=== PATIENT | male | born 1960 | race Caucasian/White ===

== ENCOUNTER 2019-06-17 00:13 | Day surgery (SDC) | payer BC, SELFPAY ==
[2019-06-15 09:49] VITALS: BMI 28.1
[2019-06-17] MEDS: LACTATED RINGERS 1,000 ML 150 ML IV CONT (06:20)
[2019-06-17 06:34] VITALS: BP 132/94; PULSE 80; RESP 16; TEMP 36.4; O2SAT 96
--- NOTE | 2019-06-17 07:13 | WPDANESEPPF ---
Anes - Initial Pre Proc Eval Procedure: Operation Date: 06/17/19 07:30 Proposed Procedures p Screening Colonoscopy - Americo Hinojosa MD Date/Time: 06/17/19 07:13 Surgeon: Americo Hinojosa MD Pre Op Diagnosis: Neoplasm Screening/ Fam Hx Colon Ca Patient Data Age: 59 Gender: M Height: 5 ft 8 in Weight: 84 kg Last Vital Signs Temp 97.6 F 06/17/19 06:34 Pulse 80 06/17/19 06:34 Resp 16 06/17/19 06:34 BP 132/94 H 06/17/19 06:34 Pulse Ox 96 06/17/19 06:34 Allergies Allergy/AdvReac Type Severity Reaction Status Date / Time No Known Allergies Allergy Verified 06/17/19 06:17 Home Medications Medication Instructions Recorded Confirmed Type aspirin 81 mg tablet,delayed 81 mg PO DAILY 05/21/19 06/17/19 History release Patient hx anesthesia problems: none Family hx anesthesia problems: none PMFSH Past Medical History Medical History Atrial septal defect BPPV (benign paroxysmal positional vertigo) (~2017) Surgical History Surgical History (Updated 05/21/19 @ 09:51 by Nury Billingsley NP) History of appendectomy (~2002) Family History Family History (Updated 07/07/18 @ 14:54 by DOCTOR UNKNOWN) Father Carcinoma of colon Family history of alcoholism Family history of primary malignant neoplasm of liver Mother Family history of malignant neoplasm of brain Sibling Family history of multiple sclerosis Patient's brother is in good health Family history of lymphoma, Onset Age: 70 Grandparent Family history of alcoholism Social History Social History (Updated 05/21/19 @ 09:53 by Nury Billingsley NP) Smoking status: Former smoker Tobacco type: cigarettes Second hand tobacco smoke exposure: No Smoking end date: 05/05/79 Additional smoking assessment comments: 2.5 pack-year Alcohol intake: current Anes - Eval Final PreProcedure Day of Procedure 06/17/19 07:13 Patient weight: normal Heart: regular rate and rhythm Lungs: clear to auscultation Airway: Mallampati scale class II Neurological: alert and oriented Last oral intake: >/= 8 hours ASA classification: II Emergent: no Anesthetic plan: proceed Anesthesia type and monitoring: general GIVS and standard monitoring Informed Consent: The patient's anesthetic plan and its attendant risks and benefits were discussed with the patient/family/POA. Questions were solicited and answers provided to the satisfaction of the patient/family/POA.
--- NOTE | 2019-06-17 07:36 | WPDGICN ---
Assessment and Plan Additional Plan This is a 59-year-old white male patient seen in evaluation at the request of Dr. David Romero. Patient presents for screening colonoscopy. Patient's current weight appetite bowel movements are normal. He denies any blood in his stools. He denies abdominal pain. His bowel habits are regular. Family history is significant is father had colon cancer. His brother had colon polyps. Current medications include only baby aspirin taken daily. No known drug allergies. Physical exam reveals him to be alert. Oriented x3. Vital signs stable. HEENT exam unremarkable. Lungs are clear to auscultation and percussion. Heart is without murmur or extra sounds. Abdominal exam bowel sounds are present soft nontender with no organomegaly. Digital external rectal exam is normal. Impression 1. Family history of colon cancer and polyps. Plan is for screening colonoscopy now on a 5 year intervals in the future. GI Consult Note Consult date/time: 06/17/19 07:36 HPI: Eitan Simpson is a 59 year old male [facility] Past Medical History Medical History (Updated 06/17/19 @ 07:15 by Royer Anne MD) Atrial septal defect small hole; no sypmtoms; advised to take baby ASA BPPV (benign paroxysmal positional vertigo) (~2017) Surgical History Surgical History (Updated 05/21/19 @ 09:51 by Nury Billingsley NP) History of appendectomy (~2002) Family History Family History (Updated 07/07/18 @ 14:54 by DOCTOR UNKNOWN) Father Carcinoma of colon Family history of alcoholism Family history of primary malignant neoplasm of liver Mother Family history of malignant neoplasm of brain Sibling Family history of multiple sclerosis Patient's brother is in good health Family history of lymphoma, Onset Age: 70 Grandparent Family history of alcoholism Social History Social History (Updated 05/21/19 @ 09:53 by Nury Billingsley NP) Smoking status: Former smoker Tobacco type: cigarettes Second hand tobacco smoke exposure: No Smoking end date: 05/05/79 Additional smoking assessment comments: 2.5 pack-year Alcohol intake: current Meds Home Medications and Allergies Home Medications Medication Instructions Recorded Confirmed Type aspirin 81 mg tablet,delayed 81 mg PO DAILY 05/21/19 06/17/19 History release Allergies Allergy/AdvReac Type Severity Reaction Status Date / Time No Known Allergies Allergy Verified 06/17/19 06:17 Vital Signs Vital Signs - 24 hr 06/17/19 06:34 Temperature 36.4 C Pulse Rate 80 Respiratory Rate 16 Blood Pressure 132/94 H Pulse Oximetry 96
[2019-06-17 08:00] VITALS: BP 106/72; PULSE 63; RESP 16; O2SAT 94
[2019-06-17 08:10] VITALS: BP 117/72; PULSE 55; RESP 16; O2SAT 97
[2019-06-17 08:20] VITALS: BP 121/80; PULSE 56; RESP 18; O2SAT 97
== END 2019-06-17 08:49 | disposition home or self-care (01) ==
PROVIDERS: PCP Family Medicine; Visit Provider Internal Medicine Gastroenterology
PROC: 0DJD8ZZ Inspection of Lower Intestinal Tract, Via Natural or Artificial Opening Endoscopic (ICD-10-PCS; CPT 45378; principal; 2019-06-17 07:30)
DX: Z12.11 Encounter for screening for malignant neoplasm of colon (principal); K63.5 Polyp of colon; K64.8 Other hemorrhoids; K57.30 Diverticulosis of large intestine without perforation or abscess without bleeding; Z80.0 Family history of malignant neoplasm of digestive organs; Z83.71 Family history of colonic polyps; Q21.1 Atrial septal defect; Z87.891 Personal history of nicotine dependence; Z79.82 Long term (current) use of aspirin
CPT/HCPCS: 45385; 88305; J2704; J7120

== ENCOUNTER 2019-10-28 12:21 | Emergency (ER) | payer BC, SELFPAY ==
--- NOTE | ~2019-10-28 | XR_ITS ---
EXAMINATION: XR forearm RT 2V DATE: 10/28/2019 13:05 INDICATION: Wood foreign body at the right forearm TECHNIQUE: AP an lateral views of the right forearm were obtained. COMPARISON: none FINDINGS: Bone alignment is normal. No fracture. Mild osteoarthritis at the first carpal metacarpal joint. Victoria nt lesion with thin sclerotic margins likely representing a cyst at the hamate. No evident radiopaque or radiolucent foreign bodies. IMPRESSION: 1. No acute osseous abnormality or evident foreign body. Of note organic foreign bodies can demonstra te similar density to soft tissue and can be occult on plain radiographs. If there is continued clini tatiana concern would consider ultrasound for more sensitive evaluation. Reviewed, dictated and finalized at location A. IMPRESSION: 1. No acute osseous abnormality or evident foreign body. Of note organic foreig n bodies can demonstrate similar density to soft tissue and can be occult on pl ain radiographs. If there is continued clinical concern would consider ultrasou nd for more sensitive evaluation.
--- NOTE | 2019-10-28 12:37 | ED.GENADULT ---
HPI - General Adult General Chief complaint: Wound/Laceration Stated complaint: foreign body right forearm Time Seen by Provider: 10/28/19 12:36 Source: patient Mode of arrival: ambulatory Limitations: no limitations History of Present Illness HPI narrative: 59-year-old male patient presents to the [facility] with complaints of a foreign body into his right forearm. Patient states he was working outside today and tripped and fell up against a wooden door frame and got a splinter stuck in his right forearm. Patient states he attempted to get out but was unable to get out and states that it is quite large. Unknown when his last tetanus shot was. Denies being on any blood thinners. Related Data Home Medications Medication Instructions Recorded Confirmed aspirin 81 mg tablet,delayed 81 mg PO DAILY 05/21/19 06/17/19 release Allergies Allergy/AdvReac Type Severity Reaction Status Date / Time No Known Allergies Allergy Verified 10/28/19 12:43 Review of Systems Review of Systems: Narrative: CONSTITUTIONAL: Denies fever, chills, or sweats. EYES: Denies visual changes, redness, or discharge. ENT: Denies rhinorrhea, congestion, sore throat, or otalgia. CARDIOVASCULAR: Denies chest pain, palpitations, or edema. RESPIRATORY: Denies cough or dyspnea. GASTROINTESTINAL: Denies abdominal pain, nausea, vomiting, or diarrhea. GENITOURINARY: Denies dysuria or hematuria. SKIN: Denies rash or itching. Positive foreign body to right forearm MUSCULOSKELETAL: Denies back pain, joint pain, or myalgia. NEUROLOGIC: Denies headache, numbness, or weakness. PSYCHIATRIC: Denies anxiety or depression. [facility] Past Medical History Medical History Atrial septal defect small hole; no sypmtoms; advised to take baby ASA BPPV (benign paroxysmal positional vertigo) (~2018) Surgical History Surgical History History of appendectomy (~2002) Family History Family History Father Carcinoma of colon Family history of alcoholism Family history of primary malignant neoplasm of liver Mother Family history of malignant neoplasm of brain Sibling Family history of multiple sclerosis Patient's brother is in good health Family history of lymphoma, Onset Age: 70 Grandparent Family history of alcoholism Social History Social History Smoking status: Former smoker Tobacco type: cigarettes Second hand tobacco smoke exposure: No Smoking end date: 05/05/79 Additional smoking assessment comments: 2.5 pack-year Alcohol intake: current Comments At the time of my signature I agree with nursing past medical history, surgical, social, and family history. There is no relevant family history pertinent to the presenting complaint. Exam Narrative: Exam Narrative: GENERAL: Well-appearing, well-nourished, and in no acute distress. HEAD: Normocephalic, atraumatic. EYES: PERRLA and EOMI. ENT: Nares clear, no rhinorrhea or epistaxis. Mucous membranes moist. NECK: Supple. No lymphadenopathy CHEST: Clear to auscultation. No respiratory distress. HEART: Regular rate and rhythm. No murmur heard. Normal peripheral pulses. ABDOMEN: Soft, nontender, nondistended, normal active bowel sounds. EXTREMITIES: Normal range of motion. No edema. SKIN: Warm, dry, no rash. Patient has about a 4 cm splinter noted under the skin right forearm. No active bleeding at this time. Patient does have excellent range of motion to the arm and hand. Good pulses noted on palpation. NEURO: No focal deficits. Alert and oriented x3. Course Vital Signs Vital signs: Vital signs reviewed. Procedures Foreign Body Removal Foreign Body #1: Foreign Body Removal Date: 10/28/19 Foreign Body Removal Time: 14:05 Time Out Performed: no Site: ri
[2019-10-28] MEDS: TETANUS,DIPHTHERIA,AC PERTUSSIS ADULT (0.5 ML) BOOSTRIX IM (13:23)
[2019-10-28] MEDS: LIDOCAINE HCL 1% LOCAL INJ 20 ML VIAL (13:24)
[2019-10-28 14:38] VITALS: BP 120/70; PULSE 77; RESP 20; TEMP 36.7; O2SAT 99
== END 2019-10-28 14:39 | disposition home or self-care (01) ==
PROVIDERS: Emergency Provider Nurse Practitioner Family; PCP Family Medicine
DX: S50.851A Superficial foreign body of right forearm, initial encounter (principal); Z79.82 Long term (current) use of aspirin; Z23 Encounter for immunization; Z87.891 Personal history of nicotine dependence; W45.8XXA Other foreign body or object entering through skin, initial encounter
CPT/HCPCS: 10120; 73090; 90471; 90715; 99283

== ENCOUNTER → 2020-05-22 11:03 | Outpatient (CLI) | payer BC, SELFPAY ==
--- NOTE | ~2020-05-22 | XR_ITS ---
EXAMINATION: XR wrist LT min 3V DATE: 05/22/2020 11:15 INDICATION: Chronic left wrist pain and swelling. TECHNIQUE: 4 views of left wrist were obtained. COMPARISON: Left wrist radiograph 03/19/2011 FINDINGS: Scapholunate dissociation is noted. There is dorsal tilt of lunate, consistent with dorsal intercalated segmental instability (DISI). There is severe osteoarthritis of radioscaphoid joint and lunate-capitate joint. There is a subchondral cyst in distal radius at the lunate fossa. There is mil d osteoarthritis of first carpometacarpal joint. There is dorsal wrist soft tissue swelling. There is a small loose body in the wrist dorsally. IMPRESSION: 1. Scapholunate advanced collapse (SLAC). Reviewed, dictated and finalized at location B. SERVICE SPECIALIST
== END ==
PROVIDERS: PCP Family Medicine; Visit Provider Plastic Surgery
DX: M19.031 Primary osteoarthritis, right wrist (principal)
CPT/HCPCS: 73110

== ENCOUNTER 2020-05-25 16:58 | Emergency (ER) | payer BC, SELFPAY ==
[2020-05-25 18:48] VITALS: BP 156/97; PULSE 70; RESP 18; TEMP 36.2; O2SAT 98
--- NOTE | 2020-05-25 18:55 | PC.NURSE ---
PT STATES NOW IS FEELING ALL BETTER AND WISHES TO LEAVE PRIOR TO SEEING A PROVIDER. PT AMBULATORY WITH A STEADY GAIT FROM ED. ADVISED HE CAN RETURN AT ANY TIME TO BE SEEN IF NEEDED.
== END 2020-05-25 18:30 | disposition left against medical advice (07) ==
PROVIDERS: PCP Family Medicine
DX: Z53.21 Procedure and treatment not carried out due to patient leaving prior to being seen by health care provider (principal)
CPT/HCPCS: 99199

== ENCOUNTER 2020-06-06 12:42 | Outpatient (CLI) | payer BC, SELFPAY ==
--- NOTE | ~2020-06-06 | XR_ITS ---
EXAMINATION: XR md joint inject/asp w image DATE: 06/06/2020 13:32 INDICATION: Left wrist osteoarthritis. TECHNIQUE: A time-out was performed to verify the patient's name, date of , and procedure to b e performed. The procedure including the risks, benefits, and alternatives was discussed with the pat ient. Risks discussed included bleeding and infection. The patient understood the risks and agreed to proceed. The skin overlying the left radiocarpal joint was prepped and draped in usual sterile fash ion. Anesthetic was administered with 1% lidocaine subcutaneously. A 23 G needle was advanced under fluoroscopic guidance into the joint. Subsequently, injectate consisting of 1.0 mL 40 mg/mL Kenalog, 0.5 mL 0.5% bupivacaine and 0.2 mL Omnipaque 240 was instilled. The needle was removed and the entr y site was cleaned and dressed. There were no immediate complications. Fluoroscopy exposure time was 0.0 minutes. The total number of images was 3. FINDINGS: Real-time fluoroscopy demonstrates the needle in the left radiocarpal joint. Contrast passe s to the midcarpal compartment, consistent with scapholunate ligament tear. Patient's pain prior to p rocedure:2/10. Patient's pain following the procedure: 0/10. IMPRESSION: 1. Fluoroscopy guided left radiocarpal joint injection of local anesthetic and steroid with decrease in the patient's presenting pain. Reviewed, dictated and finalized at location A. T [employer]TENA[employer]CE
== END 2020-06-06 12:43 | disposition home or self-care (01) ==
PROVIDERS: PCP Family Medicine; Visit Provider Plastic Surgery
DX: M19.032 Primary osteoarthritis, left wrist (principal)
CPT/HCPCS: 20605; 77002; J3301; Q9966

== ENCOUNTER 2020-06-26 15:00 | Outpatient (RCR) | payer BC, SELFPAY ==
--- NOTE | 2020-06-05 09:16 | PTOPEVAL ---
Thank you for referring Eitan Simpson to [facility].? The patient is scheduled to be seen for therapy? 2 x/week for 3 weeks to address his shoulder impairments. Please review, sign, date and return this plan of care SHERRY. I agree with and certify that the following plan of care is medically necessary. 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 He changes positions every 30 min. Subjective Information He reports increased pain with Query Text:As Reported By Patient/ reaching activities. Family Increased pain and limitations with reaching behind. He c/o constant ache pain in the shoulder. Denies any injury. Increased pain if sleeping on left shoulder. He c/o numbness and tinging into brent hands at home. Noted to be in 1st 3 fingers. He sleeps in all positions, but often on his back. He did receive an injection of his shoulder. Diagnostic Tests X-Rays For This Problem Yes: mild degenerative changes in the AC joint Pain Assessment Timing of Pain Assessment Pain Scale Used Numeric (1 - 10) Self Report Pain Assessment Left Shoulder(s) Reported Pain Level 2 Pain Description Aching,Numbness,Radiating, Tender on Palpation,Tingling Pain Frequency Chronic,Continuous Lowest Pain Intensity 2 Greatest Pain Intensity 7 Pain Aggravating Factors Exercise/Activity,Lifting Pain Behaviors None Pain Score Pain Score 2: Self Report Upper Extremity Range of Motion Scapular/ Shoulder Range of Motion Right Shoulder Flexion - Active 160 Shoulder Extension - Active 38 Shoulder Abduction - Active 160 Shoulder Medial Rotation - Active 75 Shoulder Medial Rotation - Active T9 Query Text:Reach Behind the Back Shoulder Lateral Rotation - Active 85 Shoulder Lateral Rotation - Active C6 Query Text:Reach Behind the Head Left Shoulder Flexion - Active 170 Shoulder Extension - Active 43 Shoulder Abduction - Active
--- NOTE | 2020-06-19 09:26 | PCPTNOTE ---
Patient called & cancelled scheduled appointment this date due to weather.
--- NOTE | 2020-06-26 15:45 | PTOPEVAL ---
Thank you for referring Eitan Simpson to [facility].? Pt has received 6 therapy visit to address shoulder impairments. He is able to perform normal daily activities without increased pain or symptoms. He is indep with his HEP at this time. He has achieved his therapy goals. He has reached maximal potential with skilled therapy services at this time. DC skilled therapy services with pt to cont with home prorgram. Please review, sign, date and return discharge summary SHERRY. I agree with and certify that the following plan of care is medically necessary. 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 Subjective Information He denies pain with sleeping Query Text:As Reported By Patient/ or daily activities. Denies Family any problems with reaching motions in all directions. He denied numbness and tinging into brent hands at home. He is performing his HEP 4x/wk. Pain Assessment Self Report Pain Score 0: Self Report Upper Extremity Range of Motion Right Shoulder Flexion - Active 168 Shoulder Extension - Active 42 Shoulder Abduction - Active 165 Shoulder Medial Rotation - Active 80 Shoulder Medial Rotation - Active T9 Query Text:Reach Behind the Back Shoulder Lateral Rotation - Active 75 Shoulder Lateral Rotation - Active T1 Query Text:Reach Behind the Head Left Shoulder Flexion - Active 175 Shoulder Extension - Active 48 Shoulder Abduction - Active 170 Shoulder Medial Rotation - Active 80 Shoulder Medial Rotation - Active T7 Query Text:Reach Behind the Back Shoulder Lateral Rotation - Active 68 Shoulder Lateral Rotation - Active T1 Query Text:Reach Behind the Head Upper Extremity Muscle Strength Testing Right Scapular Retraction - Middle Trapezius 3+ Fair + Scapular Retraction - Lower Trapezius 3 Fair Shoulder Flexion Strength 4+ Good + Shoulder Extension Strength 5 Normal Shoulder Abduction Strength 5 Normal Shoulder Medial Rotation Strength 5 Normal Shoulder Lateral Rotation Strength 5 Normal Left Scapular Retraction - Middle Trapezius 3 Fair Scapular Retraction - Lower Trapezius 3 Fair Shoulder Flexion Strength 4+ Good + Shoulder Extension Strength 5 Normal Shoulder Abduction Strength 4+ Good + Shoulder Medial Rotation Strength 5 Normal Shoulder Lateral Rotation Strength 5 Normal Palpation Assessment Palpation no tenderness of proximal tricep, deltiod region, left GH joint, left pec major or
== END 2020-06-27 10:17 | disposition home or self-care (01) ==
LOC: ANHPT 15:00
PROVIDERS: PCP Family Medicine; Visit Provider Orthopaedic Surgery
DX: M25.512 Pain in left shoulder (principal); G89.29 Other chronic pain
CPT/HCPCS: 97110; 97140; 97161

== ENCOUNTER 2020-09-27 13:40 | Outpatient (CLI) | payer BC, SELFPAY ==
--- NOTE | ~2020-09-27 | XR_ITS ---
EXAMINATION: XR md joint inject/asp w image DATE: 09/27/2020 14:41 INDICATION: Left scapholunate advanced collapse (SLAC) wrist presenting with left wrist pain TECHNIQUE: A time-out was performed to verify the patient's name, date of , and procedure to shari e performed. The procedure including the risks, benefits, and alternatives was discussed with the pat ient. Risks discussed included bleeding and infection. The patient understood the risks and agreed to proceed. The skin overlying the left wrist joint was prepped and draped in usual sterile fashion. Anesthetic was administered with 1% lidocaine subcutaneously. A 25 G needle was advanced under fluor oscopic guidance into the joint. Injection of 1 mL of Omnipaque 240 confirmed intra-articular positi on of the needle. Subsequently, injectate consisting of 1.2 mL of 6 mg/mL betamethasone and 0.5 mL o f 0.5% bupivacaine was instilled for a total dosage of 7.2 mg of betamethasone. Washout of contrast w as seen confirming intra-articular administration. The needle was removed and the entry site was hyacinth donny and dressed. There were no immediate complications. Fluoroscopy exposure time was 2.2 minutes. T he total number of images was 2. FINDINGS: Real-time fluoroscopy demonstrates the needle in the left wrist joint. Patient's pain prior to procedure:2/10. Patient's pain following the procedure: 0/10. 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 Prominent subarticular cystic change at the lunate fossa of the distal radius with remodeling of the radial aspect of the lunate. IMPRESSION: 1. Left wrist joint injection of local anesthetic and steroid with decrease in the patient's presenti ng pain. 2. Atypical pattern of moderate osteoarthritis at the radioscaphoid and lunocapitate articulations co nsistent with chronic scapholunate ligament insufficiency and secondary scapholunate advanced collaps e (SLAC) wrist. Reviewed, dictated and finalized at location A. IMPRESSION: 1. Left wrist joint injection of local anesthetic and steroid with decrease in the patient's presenting pain. 2. 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
== END 2020-09-27 13:41 | disposition home or self-care (01) ==
LOC: ANHIMG 13:44
PROVIDERS: PCP Family Medicine; Visit Provider Plastic Surgery
DX: M19.032 Primary osteoarthritis, left wrist (principal)
CPT/HCPCS: 20605; 77002; J0702; Q9966

== ENCOUNTER → 2022-06-11 11:46 | Outpatient (CLI) | payer BC, SELFPAY ==
--- NOTE | ~2022-06-11 | XR_ITS ---
EXAMINATION: XR lumbar spine min 4V DATE: 06/11/2022 12:02 INDICATION: Low back pain TECHNIQUE: Anteroposterior, lateral, and bilateral oblique views of the lumbar spine, and cone-down l ateral view of the lumbosacral junction were obtained. COMPARISON: None. FINDINGS: There are 4 mm of retrolisthesis of L3 on L4 and 2 mm of retrolisthesis of L4 on L5. There is moderate loss of intervertebral disc space height at L4-5 and L5-S1. The lumbar vertebral body hei ghts are maintained. There is anterior wedging of the T12 vertebral body. Small degenerative osteophy lorene project from the anterior endplates of multiple vertebral bodies. There is mild facet joint osteo arthritis of the lower lumbar spine. IMPRESSION: 1. Moderate lumbar spondylosis without acute findings of the lumbar spine. 2. Anterior wedging T12 vertebral body. Reviewed, dictated and finalized at location L. E CLINICAL
== END ==
PROVIDERS: PCP Family Medicine; Visit Provider Family Medicine
DX: M47.896 Other spondylosis, lumbar region (principal)
CPT/HCPCS: 72110

== ENCOUNTER 2022-08-13 14:45 | Outpatient (RCR) | payer BC, SELFPAY ==
--- NOTE | 2022-07-11 15:26 | PTOPEVAL1 ---
Assessment and note entered by Olivia Okeefe, PT Evaluation Information Assessment Status Evaluation Diagnosis low back pain Onset May 2022 Subjective Information issues in past with back pain, when overdoing it, eased in few days; In May--back pain did not ease - not sure what is causing it; is able to do everything, was able to hit some golf balls at driving range; Reported Pain Level Pain Score Self Report Additional Pain Score Comments pain range of 1-7/10; R and L lumbar areas, no radicular pain; increase with sitting awhile and then stand up, first wake up in morning; decrease pain with heat, hot shower; take ibuprofen PRN; is able to sleep through the night-- initially had issues with sleeping in May at onset of pain; Assessment PT Clinical Summary Ede has the diagnosis of low back pain. He reports history of back pain, intermittent, but since May has not gone away. He does not have any radicular pain. Pain is worst when wake up in the morning and after sitting, then go to stand up. Xray report states retrolisthesis L 3 on 4, L 4-5; decreased disc space L 4-5-S1; anterior wedging T 12; mild facet joint OA; Oswestry self assessment functional score is 30% limitation in activity level. With the evaluation, he has good flexibility of trunk and hips with standing and supine motions, with equal ranges R/L and pain was not increased; Standing posture with Bilateral knee varus, L > R and R hip rotation forward. Skilled PT services are indicated for modalities to decrease pain, therapeutic exercises to increase trunk strength and posture/position, with education for home exercises and posture correction. Plan of Care Interventions Electrical Stimulation,Hot Pack/Cold Pack,Manual Therapy,Neuro Re-education,Patient/Caregiver Education,Therapeutic Activities,Therapeutic Exercise,Ultrasound,Other Other Interventions taping PT Services Indicated Yes Treatment Frequency and 1x/wk for 5 weeks Duration These treatments will address the objective and functional deficits as defined above. The patient will be advanced safely and appropriately in order for the patient to progress towards his/her prior level of function. Additional exercises will be introduced and as well as a comprehensive home exercise program upon disc
--- NOTE | 2022-08-13 15:30 | PTOPDC ---
Assessment and note entered by Olivia Okeefe, PT Evaluation Information Assessment Status Discharge Diagnosis low back pain Onset May 2022 Subjective Information Ede reports: back is about the same, when I do too much, it is uncomfortable; doing the exercises 2-3 x/week without any issues; feel like ready to be finished with therapy and do things on my own; Reported Pain Level Pain Score Self Report Additional Pain Score Comments pain range 1-3/10 range in the past week; not bad , is better; increase pain with outside yard work; little tight when first wake up so do some strengthening; decrease pain with heat; played 21 holes of golf without any troubles; self assessment Oswestry score of 18% limitation Assessment PT Clinical Summary Ede has received 5 PT sessions. Compared to the initial evaluation: pain is less: was 3-7/10 and now 1-3/10; Oswestry self assessment score improved by 12%; increase hip and trunk strength; improved awareness of back position and has a home exercise program. 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 Discharge PT services. He is to continue with his HEP and posture monitoring. Plan of Care PT Services Indicated No
== END 2022-09-24 08:38 | disposition home or self-care (01) ==
LOC: ANHPT 14:45
PROVIDERS: PCP Family Medicine; Visit Provider Family Medicine
DX: M54.50 Low back pain, unspecified (principal)
CPT/HCPCS: 97110; 97161; 97530

== ENCOUNTER 2024-10-19 02:47 | Day surgery (SDC) | payer BC, SELFPAY ==
[2024-10-05 11:40] VITALS: BMI 28.5
--- OUTSIDE RECORDS SUMMARY | 2024-10-19 02:50 | XMS_ITS | Clinical Summary ---
Author Organization [facility] Address [address] [place] [address] Care Team Providers Care Carnival Worker Name Role Phone Sharonda Graham MD Primary Care Provider [phone] Source Comments [facility],non-owned Affiliates and Associated Physician Practices is amultiple site organization consisting of ambulatory clinics and hospital sitesin [place], [place], [place] and [place]. This disclosure is being madepursuant to the Care Everywhere program and may not contain all information available regarding this patient. Last updated 18.[facility] Allergies Active Allergy Reactions Criticality Noted Date Comments Cephalexin Rash Medium 09/29/2020 Medications * Be aware that medications may not be up to date on this document. Alwaysverify current medications with the patient. acetaminophen (TYLENOL) 500 MG capsule Take 1 (one) capsule by mouth as needed for Fever or Pain Active ibuprofen (MOTRIN) 200 MG tablet Take 1 (one) tablet by mouth as needed for Pain Active Multiple Vitamins-Minera ls (CENTRUM SILVER 50+MEN PO) Take 1 capsule by mouth as needed TAKES EVERY OTHER DAY Active VITAMIN D PO Take 1,000 Units by mouth as needed TAKES EVERY OTHER DAY Active fluticasone propionate (Flonase) 50 MCG/ACT nasal spray Warren 2 (two) sprays into each nostril once daily 12/12/2023 Active doxycycline hyclate (Vibramycin) 100 MG capsule Take 1 (one) capsule by mouth 2 times daily 12/12/2023 Active Active Problems Problem Noted Date Diagnosed Date 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 (FLUCELVAX QUADRIVALENT; 6MO+) (CCIIV4) 03/31/2022 INFLUENZA VACCINE, TRIV. (FL UZONE; FLULAVAL; FLUARIX; AFLURIA TRIVALENT; 6MO+), 0.5 ML (IIV3) 04/15/2017 TDAP, HISTORIC VACCINE 10/28/2019 Family History Medical History Relation Name Comments Cancer Brother Alcohol abuse Father Cancer Father Arthritis - Rheumatoid Mother Cancer Mother Hypertension Mother Relation Name Status Comments Brother Father Mother Social History Tobacco Use Types Packs/Day Years Used Date Smoking Tobacco: Former Cigarettes 1.5 3 0 05/05/1976 - 05/05/1979 Smokeless Tobacco: Never Alcohol Use Standard Drinks/Week Comments Yes 5 (1 standard drink = 0.6 oz pur e alcohol) Sex and Gender Information Value Date Recorded Sex Assigned at Not on file 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 Gender Identity Not on file Sexual Orientation Not on file Last Filed Vital Signs Vital Sign Reading Time Taken Comments Blood Pressure 135/89 01/02/2024 3:03 PM CDT Pulse 76 01/02/2024 3:03 PM CDT Temperature 36.8 C (98.2 F) 11/16/2021 10:32 AM CDT Respiratory Rate - - Oxygen Saturation - - Inhaled Oxygen Concentration - - Weight 85.3 kg (188 lb) 01/02/2024 3:03 PM CDT Height 172.7 cm (5' 8) 01/02/2024 3:03 PM CDT Body Mass Index 28.59 01/02/2024 3:03 PM CDT Plan of Treatment Upcoming Encounters Date Type Department Care Team (Late st Contact Info) Description 01/17/2025 10:00 AM CDT Testing Visit [facility] - ENT [address] [place] [address] Dawna Pastrana, Jonathan [address] [facility] [address] [place] [address] 01/17/2025 10:30 AM CDT Office Visit [facility] - ENT [address] [place] [address], [place] [id number] Chema Vernon MD [address] [place] [address] [place] [address] Health Maintenance Due Date Last Done Comments COLOGUARD (AGES 45-75) - COL ON CA SCREENING 1958 COLON MONITORING 1958 COLONOSCOPY - COLON CA SCREENING 1958 CT COLONOGRAPHY - COLON CA SCREENING 1958 Colorectal Cancer Screening 1958 FIT - COLON CA SCREENING 1958 FLEX SIG - COLON CA SCREENING 1958 LIPID TESTING 1958 HEPATITIS C SCREENING 04/28/1976 PNEUMOCOCCAL VACCINE 50+ (1 of 1 - PCV) 2008 ZOSTER VACCINE (1 of 2) 2008 AAA SCREENING 2023 SCREENING FOR DIABETES 01/02/2024 COVID-19 VACCINE (3 - 2023-2 5 season) 2024 11/18/2020, 10/20/2020 DEPRESSION SCREENING 05/05/2024 INFLUENZA VACCINE (Season Ended) 2025 03/31/2022, 03/01/2021, 04/15/2017 DTAP/TDAP/TD VACCINES (2 - T d or Tdap) 10/27/2029 10/28/2019 Respiratory Syncytial Virus (RSV) Vaccine Pt: or over 60 yrs (1 - 1-dose 75+ series) 2033 HEPATITIS B VACCINE Aged Out No longe r eligible based on patient's age to complete this topic HIB VACCINE Aged Out No longer eligi ble based on patient's age to complete this topic HPV VACCINE Aged Out No longer eligi ble based on patient's age to complete this topic MENINGOCOCCAL (Group B) VACCINE SHARED DECISION-MAKING Aged Out No longer eligible based on patient's age to complete this topic MENINGOCOCCAL GROUPS A/C/Y/W VACCINE Aged Out No longer eligible b ased on patient's age to complete this topic Insurance ANTHEM Care Teams Carnival Worker Relationship Specialty Start Date End Date Sharonda Graham MD [address] [place] [address] PCP - General Family Medicine 09/29/20
--- OUTSIDE RECORDS SUMMARY | 2024-10-19 02:50 | XMS_ITS | Clinical Summary ---
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
[2024-10-19 09:15] VITALS: BP 136/86; PULSE 78; RESP 18; TEMP 36.6; O2SAT 99
[2024-10-19] MEDS: LACTATED RINGERS 1,000 ML 150 ML IV CONT (09:21)
--- NOTE | 2024-10-19 09:45 | P.PNAN_ITS ---
Anes - Initial Pre Proc Eval Procedure: Operation Date: 10/19/24 10:30 Proposed Procedures p Colonoscopy - Romain Goldman MD Date/Time: 10/19/24 09:45 Surgeon: Romain Goldman MD Pre Op Diagnosis: Personal Hx of colon polyps, unspecified Patient Data Age: 64 Gender: M Height: 1.73 m Weight: 84 kg Last Vital Signs Temp 36.6 C 10/19/24 09:15 Pulse 78 10/19/24 09:15 Resp 18 10/19/24 09:15 BP 136/86 10/19/24 09:15 Pulse Ox 99 10/19/24 09:15 O2 Del Method Room Air 10/19/24 09:15 Allergies Allergy/AdvReac Type Severity Reaction Status Date / Time cephalexin Allergy Mild Rash Verified 10/19/24 09:14 Home Medications ?Medication ?Instructions ?Recorded ?Confirmed ?Type fluticasone propionate 50 2 spray intranasal DAILY #16 grams 12/12/23 10/19/24 Rx mcg/actuation nasal spray,suspension Patient hx anesthesia problems: none Family hx anesthesia problems: none Results Review: All pre-operative results and documents have been reviewed as part of the pre- operative evaluation. [facility] Past Medical History Medical History Mixed hyperlipidemia Left shoulder pain BPPV (benign paroxysmal positional vertigo) (~2017) Atrial septal defect small hole; no sypmtoms; advised to take baby ASA Surgical History Surgical History History of appendectomy (~2002) Family History Family History Father Carcinoma of colon Family history of alcoholism Family history of primary malignant neoplasm of liver Mother Family history of malignant neoplasm of brain Hypertension Sibling Family history of multiple sclerosis Patient's brother is in good health Family history of lymphoma, Onset Age: 70 Grandparent Family history of alcoholism Social History Social History Smoking packs per day: 0.5 Smoking cigarettes per day: 10.0 Years smoked: 3 Smoking pack-years: 1.50 Smoking status: Never smoker Tobacco type: cigarettes Second hand tobacco smoke exposure: No Smoking end date: 05/05/79 Additional smoking assessment comments: 2.5 pack-year Alcohol intake: current Drinks per week: 6 Alcohol use details: beer Substance use: never Substance use type: does not use Lack of Transportation: No Lack of Food: Never True Current Housing: I Have Housing Concerned About Future Housing: No Difficulty Paying Gas/Electric Bills: No Difficulty Paying for Meds: No Currently Unemployed: No Education: Master's Degree or Higher Difficulty w/ Childcare or Family Care: No Living arrangements: with family Occupation/Education: occupation Additional occupation/education comments: [employer] Gender identity (if verbalized by the patient): Male Sexual Orientation (if Verbalized by the Patient): Straight or Heterosexual Spiritual care concerns: No Agree to blood products: Yes Anes - Eval Final PreProcedure Day of Procedure 10/19/24 09:45 Patient weight: overweight Heart: regular rate and rhythm Lungs: clear to auscultation Airway: Mallampati scale class II Neurological: alert and oriented Last oral intake: >/= 8 hours ASA classification: II Emergent: no Anesthetic plan: proceed Anesthesia type and monitoring: general GIVS and standard monitoring Results Review: All pre-operative results and documents have been reviewed as part of the pre- operative evaluation. Informed Consent: The patient's anesthetic plan and its attendant risks and benefits were discussed with the patient/family/POA. Questions were solicited and answers provided to the satisfaction of the patient/family/POA.
--- NOTE | 2024-10-19 09:59 | P.HP_ITS ---
History of Present Illness History of Present Illness Consent: Risks, benefits, and alternatives have been discussed and questions answered. Patient agrees to proceed with procedure. Chief complaint: Personal Hx of colon polyps, unspecified Narrative: Eitan Simpson is a 64 year old male with colon polyp and strong family history of colon cancer (father and uncles), last colonoscopy 2019 Review of Systems Review of Systems: All systems reviewed & are unremarkable except as noted in HPI and below PMFSH Past Medical History Medical History (Updated 10/19/24 @ 10:01 by Romain Goldman MD) Family history of colon cancer Colon polyp Mixed hyperlipidemia Left shoulder pain BPPV (benign paroxysmal positional vertigo) (~2017) Atrial septal defect small hole; no sypmtoms; advised to take baby ASA Surgical History Surgical History History of appendectomy (~2002) Family History Family History Father Carcinoma of colon Family history of alcoholism Family history of primary malignant neoplasm of liver Mother Family history of malignant neoplasm of brain Hypertension Sibling Family history of multiple sclerosis Patient's brother is in good health Family history of lymphoma, Onset Age: 70 Grandparent Family history of alcoholism Social History Social History Smoking packs per day: 0.5 Smoking cigarettes per day: 10.0 Years smoked: 3 Smoking pack-years: 1.50 Smoking status: Never smoker Tobacco type: cigarettes Second hand tobacco smoke exposure: No Smoking end date: 05/05/79 Additional smoking assessment comments: 2.5 pack-year Alcohol intake: current Drinks per week: 6 Alcohol use details: beer Substance use: never Substance use type: does not use Lack of Transportation: No Lack of Food: Never True Current Housing: I Have Housing Concerned About Future Housing: No Difficulty Paying Gas/Electric Bills: No Difficulty Paying for Meds: No Currently Unemployed: No Education: Master's Degree or Higher Difficulty w/ Childcare or Family Care: No Living arrangements: with family Occupation/Education: occupation Additional occupation/education comments: [employer] Gender identity (if verbalized by the patient): Male Sexual Orientation (if Verbalized by the Patient): Straight or Heterosexual Spiritual care concerns: No Agree to blood products: Yes Meds Home Medications and Allergies Home Medications ?Medication ?Instructions ?Recorded ?Confirmed ?Type fluticasone propionate 50 2 spray intranasal DAILY #16 grams 12/12/23 10/19/24 R x mcg/actuation nasal spray,suspension Allergies Allergy/AdvReac Type Severity Reaction Status Date / Time cephalexin Allergy Mild Rash Verified 10/19/24 09:14 Vital Signs Vital Signs - 24 hr 10/19/24 09:15 Temperature 97.8 F Pulse Rate 78 Respiratory Rate 18 Blood Pressure 136/86 Pulse Oximetry 99 Oxygen Delivery Room Air Exam Const: General: comfortable and no acute distress HENMT: Face/Nose/Sinus: Normal nares present Eyes: General: appearance normal, both eyes and all related structures Neck: Neck: no JVD Resp: Auscultation: clear to auscultation bilaterally Cardio: Rate: regular rate Rhythm: regular rhythm GI: Inspection: non-distended GI Palp: Yes Soft to palpation Skin: General skin exam: normal color Neuro: Speech: normal speech Extrem: General: normal to inspection Psych: Mental Status: mental status grossly normal Assessment and Plan Assessment and plan (1) Colon polyp: Code(s): K63.5 - Polyp of colon Status: Acute Assessment and Plan: colonoscopy (2) Family history of colon cancer: Code(s): Z80.0 - Family history of malignant neoplasm of digestive organs Status: Acute
[2024-10-19 10:14] VITALS: BP 112/69; PULSE 78; RESP 17; O2SAT 94
[2024-10-19 10:24] VITALS: BP 149/94; PULSE 74; RESP 14; O2SAT 95
[2024-10-19 10:34] VITALS: BP 128/91; PULSE 67; RESP 22; O2SAT 100
== END 2024-10-19 10:55 | disposition home or self-care (01) ==
PROVIDERS: PCP Family Medicine; Visit Provider Internal Medicine Gastroenterology
PROC: 0DJD8ZZ Inspection of Lower Intestinal Tract, Via Natural or Artificial Opening Endoscopic (ICD-10-PCS; CPT 45378; principal; 2024-10-19 10:30)
DX: Z12.11 Encounter for screening for malignant neoplasm of colon (principal); K57.30 Diverticulosis of large intestine without perforation or abscess without bleeding; K64.8 Other hemorrhoids; Z86.0100 Personal history of colon polyps, unspecified; Z80.0 Family history of malignant neoplasm of digestive organs; Z87.891 Personal history of nicotine dependence
CPT/HCPCS: 45378; J2003; J2704; J7120

== ENCOUNTER 2024-11-10 11:25 | Outpatient (CLI) | payer BC, SELFPAY ==
--- NOTE | ~2024-11-10 | XR_ITS ---
AP and lateral views of the bilateral hips and AP view of the pelvis Clinical history: Pain Findings: No acute fracture or dislocation is seen. Osseous alignment is anatomic. Bilateral hip join ts are intact. Bilateral SI joints are intact.. Soft tissues are unremarkable. Impression: No significant abnormality is seen. Reviewed, dictated and finalized at location . Impression: No significant abnormality is seen.
--- NOTE | ~2024-11-10 | XR_ITS ---
Lumbosacral Spine: AP and lateral views Clinical History: Pain COMPARISON: 06/11/2022 Findings: Minimal levoscoliosis is similar to prior exam. Stable grade 1 retrolisthesis of L3 over L4 . There is severe degenerative disc narrowing at L3-L4 and L4-L5. There is advanced facet arthropathy throughout the lumbar spine. Stable compression fracture of T12. The sacroiliac joints are normally outlined. Impression: Chronic T12 compression deformity. Stable grade 1 retrolisthesis of L3 over L4. Advanced degenerative spondylosis of the lower lumbar spine. Reviewed, dictated and finalized at location . Impression: Chronic T12 compression deformity. Stable grade 1 retrolisthesis of L3 over L4. Advanced degenerative spondylosis of the lower lumbar spine.
== END 2024-11-10 11:26 | disposition home or self-care (01) ==
LOC: MICIMG 11:25
PROVIDERS: PCP Family Medicine; Visit Provider Student in an Organized Health Care Education/Training Program
DX: M25.559 Pain in unspecified hip (principal); M47.896 Other spondylosis, lumbar region
CPT/HCPCS: 72100; 73521